=== PATIENT | male | born 1955 ===

== ENCOUNTER 2018-01-03 00:49 | Emergency (ER) | payer OTHER ==
[~2018-01-03] VITALS: Ht 177.8 cm; Wt 72.6 kg
--- NOTE | 2018-01-03 00:53 | NUR ---
Note alessandro in EDM - 01/03/18 at 0134 by SDNURDKN Patient to ER bed 7 to hiram for evaluation. Side rails up. Report given to Vika.
--- NOTE | 2018-01-03 00:59 | NUR ---
Note alessandro in EDM - 01/03/18 at 0134 by SDNURDKN patient presents with foster mother complaining of two days of fever and sore throat. changes to voice, inflammed throat present. swab obtained for rapid strep screen and sent to lab.
[2018-01-03 01:02] VITALS: BP_SYST 147
--- NOTE | 2018-01-03 01:12 | NUR ---
Jimbo francois in [facility] - 01/03/18 at 0134 by SDNURDKN CONSTANTINO Zhu at bedside examining patient.
--- NOTE | 2018-01-03 01:18 | NUR ---
Jimbo francois in [facility] - 01/03/18 at 0134 by [email or web address] Medicated patient per orders.
--- NOTE | 2018-01-03 01:20 | NUR ---
Patient placed to bed 6, side rails up. Report given to Pablo GRAHAM.
--- NOTE | 2018-01-03 01:21 | NUR ---
Pt came in [facility] with a complaint of laceration on the right pinky about 1/2 inch size. No other complaint, has history of DM and hypercholesterol. VSS, safety precaution observed. Will continue to monitor Pt.
--- NOTE | 2018-01-03 01:22 | NUR ---
ER MD Zhu at bedside for medical evaluation.
[2018-01-03] MEDS ORDERED: DIPH-TET-PERTUS Vaccine 0.5 ML VIAL (ADACEL) I.M. ONE (01:30)
--- NOTE | 2018-01-03 02:16 | NUR ---
Gauze wrapped around fifth digit of right hand. Strong pulse noted. Capillary refill <2 seconds. Patient has ability to move non-splinted digits. Has sensation present to affected site. Skin color within normal limits. Applied for scant bleeding after dermabond placement.
[2018-01-03 02:17] VITALS: BP_SYST 143
--- NOTE | 2018-01-03 02:17 | NUR ---
Patient given written and verbal discharge instructions and verbalizes understanding. ER MD discussed with patient the results and treatment provided. Patient in stable condition. ID arm band removed. Patient educated on pain management and to follow up with PMD. Pain Scale 0/10. Opportunity for questions provided and answered.
== END 2018-01-03 02:17 | disposition home or self-care (01) ==
LOC: SED 00:49
DX: S61.216A Laceration without foreign body of right little finger without damage to nail, initial encounter (principal); R03.0 Elevated blood-pressure reading, without diagnosis of hypertension; W27.8XXA Contact with other nonpowered hand tool, initial encounter; Y93.89 Activity, other specified; Y92.009 Unspecified place in unspecified non-institutional (private) residence as the place of occurrence of the external cause; Y99.8 Other external cause status
CPT/HCPCS: 90715; 99283